=== PATIENT | male | born 1975 | race Caucasian/White ===

== ENCOUNTER 2017-01-23 02:33 | Emergency (ER) | payer MEDICAID ==
[~2017-01-23] VITALS: Ht 182.9 cm; Wt 104.3 kg
[2017-01-23 02:35] VITALS: BP 122/73
== END 2017-01-23 03:56 | disposition left against medical advice (07) ==
LOC: ER 02:33
DX: Z53.21 Procedure and treatment not carried out due to patient leaving prior to being seen by health care provider (principal)
CPT/HCPCS: A4606; Z7610

== ENCOUNTER 2017-09-01 18:17 | Emergency (ER) | payer MEDICAID, OTHER ==
[~2017-09-01] VITALS: Ht 185.4 cm; Wt 122.5 kg
[2017-09-01 18:17] VITALS: BP 138/90
== END 2017-09-01 19:57 | disposition home or self-care (01) ==
LOC: ER 18:19
DX: S09.8XXA Other specified injuries of head, initial encounter (principal); F17.200 Nicotine dependence, unspecified, uncomplicated; F41.9 Anxiety disorder, unspecified; W01.198A Fall on same level from slipping, tripping and stumbling with subsequent striking against other object, initial encounter; Y93.89 Activity, other specified; Y92.89 Other specified places as the place of occurrence of the external cause; Y99.0 Civilian activity done for income or pay
CPT/HCPCS: 70450; 99284; 99406; A4606; Z7610

== ENCOUNTER 2017-12-19 01:57 | Emergency (ER) | payer OTHER ==
[~2017-12-19] VITALS: Ht 182.9 cm; Wt 122.5 kg
[2017-12-19 02:38] VITALS: BP 158/103
[2017-12-19] MEDS ORDERED: LORAZEPAM INJ 2 MG/ML VIAL ONE (02:51)
[2017-12-19] MEDS ORDERED: LORAZEPAM INJ 2 MG/ML VIAL IM ONE (03:00)
== END 2017-12-19 03:29 | disposition home or self-care (01) ==
LOC: ER 02:02
DX: F41.9 Anxiety disorder, unspecified (principal); K21.9 Gastro-esophageal reflux disease without esophagitis; F17.200 Nicotine dependence, unspecified, uncomplicated
CPT/HCPCS: 96372; 99284; A4606; J2060; Z7610

== ENCOUNTER 2018-01-12 22:39 | Inpatient (IN) | payer MEDICAID, OTHER ==
[~2018-01-12] VITALS: Ht 185.4 cm; Wt 122.5 kg
--- NOTE | 2018-01-12 22:41 | NUR ---
PT AMBULATORY TO ER BED 1. BBSELF C/C LEFT LOWER EXTREMITY REDNESS/SWELLING X2 DAYS. DENIES TRAUMA. 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 VSS/RESP EVEN UNLABORED/NAD NOTED/SKIN WARM AND DRY/AFEBRILE/DENIES N-V-D/AOX4. AWAITNG MD HORN.
--- NOTE | 2018-01-12 23:26 | NUR ---
M/S 322-2
--- NOTE | 2018-01-12 23:29 | NUR ---
18G IV TO R AC X 1 ATTEMPT USING ASEPTIC TECH, BLOOD HANDED OVER TO THE LAB AT BEDSIDE. IV FLUSHES EASILY WITH NS, NO S/S INFILTRATION NOTED AT THIS TIME.
[2018-01-12] MEDS ORDERED: VANCOMYCIN 1 GM in IV D5W 250 ML IV ONE (23:30)
[2018-01-12] MEDS ORDERED: MORPHINE SULFATE INJ 2 MG/ML DISP.SYRIN IV ONE (23:30)
[2018-01-12] MEDS ORDERED: ONDANSETRON HCL/PF 4 MG/2 ML VIAL IV ONE (23:30)
[2018-01-12] MEDS ORDERED: IV NS 0.9% 500 ML BAG IV ONE (23:30)
[2018-01-12] MEDS ORDERED: ONDANSETRON HCL/PF 4 MG/2 ML VIAL ONE (23:32)
[2018-01-12] MEDS ORDERED: VANCOMYCIN 1 GM VIAL ONE (23:32)
[2018-01-12 23:33] LABS: BASOPHILS # (AUTO) 0.1 /CMM (0.0-0.2); BASOPHILS % (AUTO) 0.6 % (0.0-2.0); EOSINOPHILS % (AUTO) 0.6 % (0.0-6.0); HEMATOCRIT 40 % (39-51); HEMOGLOBIN 13.1 g/dL (13.5-17.5); LYMPHOCYTES # (AUTO) 1.2 /CMM (0.8-4.8); LYMPHOCYTES % (AUTO) 12.4 % (20.0-44.0); MEAN CORPUSCULAR HEMOGLOBIN 30 PG (26.0-33.0); MEAN CORPUSCULAR HGB CONC 33 g/dl (31.0-36.0); MEAN CORPUSCULAR VOLUME 91 fL (80-96); MONOCYTES # (AUTO) 1.5 /CMM (0.1-1.30); MONOCYTES % (AUTO) 15.1 % (2.0-12.0); NEUTROPHILS # (AUTO) 7.1 /CMM (1.8-8.9); NEUTROPHILS % (AUTO) 71.3 % (43.0-81.0); PLATELET COUNT (AUTO) 274 /CMM (150-450); RED BLOOD CELL COUNT(AUTO) 4.36 MIL/uL (4.5-6.0)
[2018-01-12] MEDS ORDERED: MORPHINE SULFATE INJ 4 MG/ML DISP.SYRIN ONE (23:33)
[2018-01-12 23:45] LABS: CALCIUM, SERUM 9.4 mg/dL (8.5-10.1); CREATININE 1.3 mg/dL (0.6-1.3); POTASSIUM 3.7 mmol/L (3.5-5.1)
[2018-01-12 23:49] LABS: INR 0.94 (0.87-1.13)
--- NOTE | 2018-01-13 00:11 | NUR ---
REPORT GIVEN TO LY ANTON FOR LUC.
--- NOTE | 2018-01-13 00:51 | NUR ---
fax [phone] fidel lyman Addendum: 01/13/18 at 0055 by YUMIKO faxed face sheet and clinicals to [facility]
--- NOTE | 2018-01-13 00:52 | NUR ---
PT BEING POSSIBLE TRANSFER TO [facility].
--- NOTE | 2018-01-13 01:53 | NUR ---
Called fidel casework supervisor at [phone]. per casework supervisor she is still awaiting call back from her MD, and will contue to monitor
--- NOTE | 2018-01-13 02:08 | NUR ---
[facility] [phone]
--- NOTE | 2018-01-13 02:09 | NUR ---
PT WILL NOW BE ADMITTED HERE, PT TBA TO M/S 322. LY ANTON GIVEN REPORT EARILER.
[2018-01-13 02:15] VITALS: BP_SYST 113; BP_SYST 131; BP_DIAS 75
--- NOTE | 2018-01-13 02:15 | NUR ---
PT TRANSPORTED TO /S [facility] VIA STRETCHER WITH EMT. VSS.
--- NOTE | 2018-01-13 02:16 | NUR ---
ADMISSION NOTES: RECEIVED REPORT FROM ROBERTO MCKEON RN, PT BROUGHT TO THE UNIT VIA WHEELCHAIR, AT BED SIDE. PT IS A/O X3 ON RA RESPIRATION EVEN AND UNLABORED, LEFT LOWER EXTREMITY SWELLING, WITH REDNESS AND BRUISES NOTED EXTENDING TO CALF AREA, PT ABLE TO WIGGLE AND MOVE TOES AND FOOT, POSITIVE WITH SENSATION ABLE TO DISTINGUISH BETWEEN SHARP AND BLUNT, WITH GOOD CAPILLARY REFILL NOTED, DENIES ANY TINGLING OR NUMBNESS SENSATION BUT CLAIMED ITS PAINFUL/BURNING WHEN TOUCH. PEDAL PULSE PALPABLE. OFFLOADED ON PILLOWS. PT BEING ADMITTED FOR CELLULITIS LLE. ORIENTED PT TO UNIT POLICY AND HOURLY ROUNDING, USE OF CALL LIGHT SYSTEM. VS TAKEN AND RECORDED. ANSWER QUERIES OF PT AND PT'S . DISCUSSED PLAN OF CARE TO PT, AND POSSIBLE US OF LLE TO R/O DVT. INVENTORY OF BELONGINGS COMPLETED BY KALIN SOMMERS. SKIN ASSESSMENT PERFORMED NO OTHER SKIN ISSUES NOTED ASIDE FROM SWELLING ON LEFT LEG. SAFETY PRECAUTIONS FOR FALL INITIATED, CALL LIGHT IN REACH, WILL CONTINUE MONITORING PT.
[2018-01-13] MEDS ORDERED: ZOLPIDEM TARTRATE 5 MG TABLET PO PRN (02:30)
[2018-01-13] MEDS ORDERED: ACETAMINOPHEN 325 MG TABLET PO PRN (02:30)
[2018-01-13] MEDS ORDERED: ONDANSETRON HCL/PF 4 MG/2 ML VIAL IVP PRN (02:30)
[2018-01-13] MEDS ORDERED: Z GUARD REMEDY 2 OZ OINT TP PRN (02:30)
[2018-01-13] MEDS: HYDROCODONE/APAP 10/325MG 1 EA TABLET PO PRN ×2 (02:46→21:43)
--- NOTE | 2018-01-13 02:47 | NUR ---
PRN NORCO: PT C/O LEFT LEG PAIN REQUESTING FOR PAIN MEDICATION, PRN NORCO 10/325 MG TAB P[O ADMINISTERED AT THIS TIME, WILL CONTINUE TO MONITOR AND REASSESS
--- NOTE | 2018-01-13 03:00 | NUR ---
RN NOTES: CONTACTED ER, TALKED TO ROBERTO RN, ASKED ABOUT MRSA, PER ROBERTO IT WAS DONE BY THE TECH AND THEY WILL PLACE THE ORDER
--- NOTE | 2018-01-13 06:51 | NUR ---
RN CLOSING NOTES: PT IN BED, AWAKE, ON RA, RESPIRATION EVEN AND UNLABORED, IV ACCESS REMAINS PATENT AND FLUSHING WELL, FREE FROM ANY S/S OF REDNESS OR INFILTRATION. LLE OFFLOADED. VS REMAINS STABLE, NEEDS ATTENDED. SAFETY PRECAUTIONS FOR FALL REMAINS ENGAGED, CALL LIGHT IN REACH, WILL ENDORSE TO DAY RN FOR CONTINUITY OF CARE.
[2018-01-13 07:10] LABS: BASOPHILS % (AUTO) 0.5 % (0.0-2.0); EOSINOPHILS % (AUTO) 1.7 % (0.0-6.0); HEMATOCRIT 39 % (39-51); HEMOGLOBIN 12.9 g/dL (13.5-17.5); LYMPHOCYTES # (AUTO) 1.6 /CMM (0.8-4.8); LYMPHOCYTES % (AUTO) 22.4 % (20.0-44.0); MEAN CORPUSCULAR HEMOGLOBIN 31 PG (26.0-33.0); MEAN CORPUSCULAR HGB CONC 33 g/dl (31.0-36.0); MEAN CORPUSCULAR VOLUME 93 fL (80-96); MONOCYTES # (AUTO) 1.4 /CMM (0.1-1.30); MONOCYTES % (AUTO) 18.7 % (2.0-12.0); NEUTROPHILS # (AUTO) 4.1 /CMM (1.8-8.9); NEUTROPHILS % (AUTO) 56.7 % (43.0-81.0); PLATELET COUNT (AUTO) 246 /CMM (150-450); RDW COEFFICIENT OF VARIATION 15.1 (11.5-15.0); RED BLOOD CELL COUNT(AUTO) 4.24 MIL/uL (4.5-6.0); WHITE BLOOD COUNT (AUTO) 7.3 K/uL (4.3-11.0)
--- NOTE | 2018-01-13 07:25 | NUR ---
MS RN NOTES PATIENT RECEIVED RESTING INSIDE ROOM. AWAKE, ALERT AND ORIENTED X 4, VERBALLY RESPONSIVE AND RESPONDS TO VERBAL AND TACTILE STIMULI. BREATHING EVEN AND UNLABORED. NO SOB OR ACUTE DISTRESS NOTED AT THIS TIME. PATIENT CALM AND RELAXED. NO CHANGES IN LOC NOTED. IV INTACT AND PATENT. CONTINUE TO OFFLOAD LLE WITH PILLOWS WHILE ON BED. WILL CONTINUE TO MONITOR. BED LOCKED AND IN LOW POSITION. BILATERAL UPPER SIDE RAILS UP AND LOCKED. CALL LIGHT WITHIN EASY REACH.
[2018-01-13 07:32] LABS: ALBUMIN 3.4 g/dL (3.4-5.0); BILIRUBIN,TOTAL 0.4 mg/dL (0.2-1.0); CALCIUM, SERUM 8.7 mg/dL (8.5-10.1); CREATININE 1.1 mg/dL (0.6-1.3); MAGNESIUM 2.2 mg/dL (1.8-2.4); PHOSPHORUS 4.8 mg/dL (2.5-4.9); POTASSIUM 3.9 mmol/L (3.5-5.1); TOTAL PROTEIN, SERUM 7.3 g/dL (6.4-8.2)
[2018-01-13 08:00] VITALS: BP 98/53
[2018-01-13] MEDS ORDERED: FEE PK DOSING 1 MIN EA MC ONE (08:07)
[2018-01-13] MEDS: VANCOMYCIN 1.25 GM in IV D5W 500 ML IV SCH ×2 (09:44→16:27)
[2018-01-13] MEDS: ENOXAPARIN SODIUM 40 MG/0.4 ML DISP.SYRIN SQ SCH (09:46)
[2018-01-13 16:00] VITALS: BP 105/71
--- NOTE | 2018-01-13 18:48 | NUR ---
MS RN NOTES PATIENT RESTING INSIDE ROOM. AWAKE, ALERT AND ORIENTED X 4, VERBALLY RESPONSIVE AND RESPONDS TO VERBAL AND TACTILE STIMULI. BREATHING EVEN AND UNLABORED. NO SOB OR ACUTE DISTRESS NOTED. PATIENT AFEBRILE, SKIN DRY AND WARM TO TOUCH. DENIES ANY PAIN AT THIS TIME. IV REMAINS INTACT, NO SWELLING OR BLEEDING ON SITE. MAINTAINED OFFLOADING OF LLE WITH PILLOWS WHILE ON BED. WILL ENDORSE TO INCOMING SHIFT FOR LUC. BED LOCKED AND IN LOW POSITION. BILATERAL UPPER SIDE RAILS UP AND LOCKED. CALL LIGHT WITHIN EASY REACH
--- NOTE | 2018-01-13 19:18 | NUR ---
MS RN INITIAL NOTES Report received at bedside. Patient received in bed, resting comfortably, easily aroused. Alert and oriented x4, verbally responsive. No complaints of pain. IV on right ac noted. On antibiotic therapy for cellulitis on left lower extremity. Safety measures in place. No SOB/labored breathing noted. Not in any type of distress. Will continue to monitor and assess patient.
[2018-01-13 20:00] VITALS: BP 111/67
[2018-01-14] MEDS: VANCOMYCIN 1.25 GM in IV D5W 500 ML IV SCH ×2 (00:48→08:22)
--- NOTE | 2018-01-14 07:10 | NUR ---
RN NOTES PT IS LAYING DOWN IN BED, AWAKE AND ALERT, RESTING COMFORTABLY. PT ON RA, RESPIRATIONS ARE EVEN AND UNLABORED. IV ON RAC INTACT AND SL. NO SIGNS OF DISTRESS NOTED. SAFETY MEASURES ARE IN PLACE, CALL LIGHT IS IN REACH. WILL CONTINUE TO MONITOR.
[2018-01-14 07:29] LABS: BASOPHILS % (AUTO) 0.6 % (0.0-2.0); EOSINOPHILS % (AUTO) 2.6 % (0.0-6.0); HEMATOCRIT 42 % (39-51); LYMPHOCYTES # (AUTO) 1.2 /CMM (0.8-4.8); LYMPHOCYTES % (AUTO) 22.2 % (20.0-44.0); MEAN CORPUSCULAR HEMOGLOBIN 31 PG (26.0-33.0); MEAN CORPUSCULAR HGB CONC 33 g/dl (31.0-36.0); MEAN CORPUSCULAR VOLUME 92 fL (80-96); MONOCYTES # (AUTO) 0.9 /CMM (0.1-1.30); MONOCYTES % (AUTO) 15.5 % (2.0-12.0); NEUTROPHILS # (AUTO) 3.3 /CMM (1.8-8.9); NEUTROPHILS % (AUTO) 59.1 % (43.0-81.0); PLATELET COUNT (AUTO) 259 /CMM (150-450); RDW COEFFICIENT OF VARIATION 15.2 (11.5-15.0); RED BLOOD CELL COUNT(AUTO) 4.59 MIL/uL (4.5-6.0); WHITE BLOOD COUNT (AUTO) 5.5 K/uL (4.3-11.0)
[2018-01-14] MEDS: HYDROCODONE/APAP 10/325MG 1 EA TABLET PO PRN ×2 (07:35→12:42)
[2018-01-14 07:38] LABS: CALCIUM, SERUM 8.5 mg/dL (8.5-10.1); CREATININE 0.9 mg/dL (0.6-1.3); MAGNESIUM 2.1 mg/dL (1.8-2.4); PHOSPHORUS 3.5 mg/dL (2.5-4.9); POTASSIUM 4.2 mmol/L (3.5-5.1)
[2018-01-14 08:00] VITALS: BP 114/76
[2018-01-14] MEDS: ENOXAPARIN SODIUM 40 MG/0.4 ML DISP.SYRIN SQ SCH (08:23)
[2018-01-14 10:25] LABS: EOSINOPHILS % (MANUAL) 3 % (0-4); LYMPHOCYTES % (MANUAL) 27 % (16-48); MONOCYTES % (MANUAL) 8 % (0-11.0); NEUTROPHILS % (MANUAL) 62 (42-76)
--- NOTE | 2018-01-14 14:41 | NUR ---
RN NOTES PT LEFT AGAINST MEDICAL ADVICE. PT WAS EDUCATED ON THE IMPORTANCE OF STAYING IN THE HOSPITAL FOR FURTHER TREATMENT AND THAT HIS HOSPITALIST WOULD BE IN SHORTLY DO DISCUSS HIS PLAN OF CARE. PT STATED THAT HE DOES NOT WANT TO WAIT ANY LONGER AND WANTS TO GO HOME NOW. IV AND ID BAND WERE REMOVED AND AMA FORM WAS SIGNED BY PT. PER PT, HE HAS ALL OF HIS BELONGINGS WITH HIM TO GO HOME WITH AND HIS FAMILY MEMBER WILL TAKE HIM HOME BY PRIVATE CAR. PT REFUSED TO TAKE ANY EDUCATION MATERIALS OR HOSPITAL WORK UP FROM ADMISSION. POPCORN CANDY MAKER AND YARD LOADER OPERATOR WERE NOTIFIED.
[2018-01-14] MEDS ORDERED: VANCOMYCIN 1 GM in IV D5W 250 ML IV SCH (17:00)
== END 2018-01-14 14:40 | disposition left against medical advice (07) | DRG 383 ==
LOC: ER 22:47 → MED 01-13 00:07
PROVIDERS: ADMIT Nurse Practitioner Acute Care; ATTEND Family Medicine
DX: L03.116 Cellulitis of left lower limb (principal); N17.0 Acute kidney failure with tubular necrosis; F41.9 Anxiety disorder, unspecified; E66.9 Obesity, unspecified; D64.9 Anemia, unspecified; E87.1 Hypo-osmolality and hyponatremia; Z68.35 Body mass index [BMI] 35.0-35.9, adult; K21.9 Gastro-esophageal reflux disease without esophagitis; F17.200 Nicotine dependence, unspecified, uncomplicated; F12.929 Cannabis use, unspecified with intoxication, unspecified; F11.21 Opioid dependence, in remission; F12.90 Cannabis use, unspecified, uncomplicated
CPT/HCPCS: 36415; 80048-TC; 80053-TC; 80202-TC; 83605-TC; 83735-TC; 84100-TC; 85025-TC; 85730-TC; 87040-TC; 87081-TC; A4606; J1650; J2270; J2405; J3370; J7040; J7050; J7060; Z7610

== ENCOUNTER 2018-03-11 03:48 | Emergency (ER) | payer OTHER ==
[~2018-03-11] VITALS: Ht 182.9 cm; Wt 99.8 kg
[2018-03-11 03:58] VITALS: BP 157/104
[2018-03-11] MEDS ORDERED: IBUPROFEN 400 MG TABLET PO ONE (04:00)
[2018-03-11] MEDS ORDERED: IBUPROFEN 400 MG TABLET ONE (04:03)
== END 2018-03-11 05:39 | disposition home or self-care (01) ==
LOC: ER 03:51
DX: S83.8X1A Sprain of other specified parts of right knee, initial encounter (principal); K21.9 Gastro-esophageal reflux disease without esophagitis; F41.9 Anxiety disorder, unspecified; F17.200 Nicotine dependence, unspecified, uncomplicated; W01.0XXA Fall on same level from slipping, tripping and stumbling without subsequent striking against object, initial encounter; Y93.89 Activity, other specified; Y92.89 Other specified places as the place of occurrence of the external cause; Y99.8 Other external cause status
CPT/HCPCS: 73564-TC; A4606; Z7610

== ENCOUNTER 2019-05-23 03:47 | Emergency (ER) | payer MEDICAID, OTHER ==
[~2019-05-23] VITALS: Ht 182.9 cm; Wt 122.5 kg
--- NOTE | 2019-05-23 04:06 | NUR ---
PT BIBS. PRODUCTIVE COUGH W/ CHEST CONGESTION X 2 DAYS. A FEBRILE. PT AAOX4, VSS, BREATHING EVEND AND UNLABORED ON ROOM AIR W/ NAD NOTED. PT CONNECTED TO THE MONITOR AND POX
[2019-05-23] MEDS ORDERED: ACETAMINOPHEN W/ CODEINE#3 1 EA TABLET ONE (04:12)
--- NOTE | 2019-05-23 04:15 | NUR ---
XRAY AT BEDSIDE
[2019-05-23] MEDS ORDERED: ACETAMINOPHEN W/ CODEINE#3 1 EA TABLET PO ONE (04:30)
[2019-05-23 05:49] VITALS: BP 128/81
--- NOTE | 2019-05-23 06:13 | NUR ---
Patient discharged to home in stable condition. Written and verbal after care instructions given. Patient verbalizes understanding of instruction.
== END 2019-05-23 06:14 | disposition home or self-care (01) ==
LOC: ER 03:50
DX: J06.9 Acute upper respiratory infection, unspecified (principal); K21.9 Gastro-esophageal reflux disease without esophagitis; F41.9 Anxiety disorder, unspecified; F17.200 Nicotine dependence, unspecified, uncomplicated; Z98.890 Other specified postprocedural states
CPT/HCPCS: 71045-TC

== ENCOUNTER 2019-06-06 00:20 | Emergency (ER) | payer MEDICAID ==
[~2019-06-06] VITALS: Ht 182.9 cm; Wt 122.5 kg
[2019-06-06 00:33] VITALS: BP 149/88
== END 2019-06-06 01:09 | disposition home or self-care (01) ==
LOC: ER 00:25
DX: R58 Hemorrhage, not elsewhere classified (principal); Z48.00 Encounter for change or removal of nonsurgical wound dressing; K21.9 Gastro-esophageal reflux disease without esophagitis; F41.9 Anxiety disorder, unspecified; F17.200 Nicotine dependence, unspecified, uncomplicated; Z98.890 Other specified postprocedural states

== ENCOUNTER 2020-03-11 18:33 | Emergency (ER) | payer MEDICAID ==
[~2020-03-11] VITALS: Ht 182.9 cm; Wt 127.0 kg
[2020-03-11] MEDS: IV NS 0.9% 1,000 ML BAG IV ONE (19:15)
[2020-03-11] MEDS: ACETAMINOPHEN 325 MG TABLET PO ONE (19:16)
[2020-03-11] MEDS ORDERED: ACETAMINOPHEN ES 500 MG TABLET ONE (19:16)
--- NOTE | 2020-03-11 19:30 | NUR ---
BIBS FROM HOME TO ER BED 6. AAOX4. NOT IN RESP DISTRESS, BREATHING EVEN AND UNLABORED. AMBULATORY. CAME IN FOR HEADACHE, SORETHROAT AND FEVER FOR THE PAST 2 DAYS. 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 NOTED THROAT REDNESS. MICHAEL FIGUEROA WAS AT THE BEDSIDE FOR EVAL. ORDERS RECEIVED NOTED AND CARRIED OUT.
--- NOTE | 2020-03-11 20:20 | NUR ---
Patient discharged to home in stable condition. Written and verbal after care instructions given. Patient verbalizes understanding of instruction.IV removed. Catheter intact and site benign. Pressure and 4x4 applied to site. No bleeding noted. Pt ambulatory with a steady gait
[2020-03-11 20:22] VITALS: BP 141/85
== END 2020-03-11 20:22 | disposition home or self-care (01) ==
LOC: ER 18:42
DX: B34.9 Viral infection, unspecified (principal); R50.9 Fever, unspecified; Z20.828 Contact with and (suspected) exposure to other viral communicable diseases; R59.0 Localized enlarged lymph nodes; F17.200 Nicotine dependence, unspecified, uncomplicated
CPT/HCPCS: 71045; 87070; 87880; 96360; 99284; C9803; J7030; U0003; 86403-TC

== ENCOUNTER 2020-03-30 07:08 | Emergency (ER) | payer MEDICAID ==
[~2020-03-30] VITALS: Ht 182.9 cm; Wt 99.8 kg
--- NOTE | 2020-03-30 07:15 | NUR ---
PT BIB SELF C/O ABD AREA REDNESS WITH SCABBING PT STATED THAT HE BURNED IT SOMEWHERE. ALSO REPORTS L KNEE REDNESS/ TENDERNESS WITH A SCAB PT STATES THAT HE KNEELED ON A NAIL. VS CHECKED. AWAITING MD HORN.
[2020-03-30] MEDS ORDERED: TDAP [DIPH/PERTUSSIS/TET] 0.5 ML VIAL IM ONE (07:30)
[2020-03-30] MEDS ORDERED: SULFAMETH/TRIMETH 800/160 MG 1 UDTAB TABLET PO ONE (07:30)
[2020-03-30] MEDS ORDERED: CEPHALEXIN MONOHYDRATE 500 MG CAPSULE PO ONE (07:30)
[2020-03-30 08:01] VITALS: BP 125/82
== END 2020-03-30 08:01 | disposition home or self-care (01) ==
LOC: ER 07:13
DX: L03.116 Cellulitis of left lower limb (principal); L03.311 Cellulitis of abdominal wall; K21.9 Gastro-esophageal reflux disease without esophagitis; F41.9 Anxiety disorder, unspecified; Z98.890 Other specified postprocedural states
CPT/HCPCS: 90715

== ENCOUNTER 2020-06-14 04:27 | Emergency (ER) | payer MEDICAID ==
[~2020-06-14] VITALS: Ht 182.9 cm; Wt 122.5 kg
[2020-06-14 04:30] VITALS: BP 132/74
[2020-06-14] MEDS ORDERED: TDAP [DIPH/PERTUSSIS/TET] 0.5 ML VIAL IM ONE ×2 (05:15→05:30)
== END 2020-06-14 05:21 | disposition home or self-care (01) ==
LOC: ER 04:33
DX: L03.116 Cellulitis of left lower limb (principal); F17.200 Nicotine dependence, unspecified, uncomplicated
CPT/HCPCS: 90715

== ENCOUNTER 2020-10-12 21:48 | Emergency (ER) | payer MEDICAID ==
[~2020-10-12] VITALS: Ht 182.9 cm; Wt 122.5 kg
--- NOTE | 2020-10-12 22:11 | NUR ---
pt bibself c/o palpitation, flashes in eyes, and ringing in ears after taking 2 pills of gensing and 1 pill of super horney goat weed. Pt aaox4 breathing evenly and unlabored. Pt skin is cool and clammy, but intact. Rt ac 20g initated. Pt attached to monitor and pox. Pt given blanket and call light within reach. will continue to monitor.
[2020-10-12] MEDS ORDERED: ONDANSETRON HCL/PF 4 MG/2 ML VIAL ONE (22:28)
[2020-10-12] MEDS ORDERED: IV NS 0.9% 1,000 ML BAG IV ONE (22:30)
[2020-10-12] MEDS ORDERED: ONDANSETRON HCL/PF 4 MG/2 ML VIAL IVP ONE (22:30)
--- NOTE | 2020-10-12 22:42 | NUR ---
blood obtained and sent to lab
--- NOTE | 2020-10-12 22:48 | NUR ---
xray at bedside
[2020-10-12 22:50] LABS: BASOPHILS # (AUTO) 0.1 /CMM (0.0-0.2); EOSINOPHILS % (AUTO) 1.5 % (0.0-6.0); HEMATOCRIT 48 % (39-51); HEMOGLOBIN 16.1 g/dL (13.5-17.5); LYMPHOCYTES # (AUTO) 1.8 /CMM (0.8-4.8); LYMPHOCYTES % (AUTO) 23.5 % (20.0-44.0); MEAN CORPUSCULAR HGB CONC 33 g/dl (31.0-36.0); MEAN CORPUSCULAR VOLUME 91 fL (80-96); MONOCYTES # (AUTO) 0.8 /CMM (0.1-1.30); MONOCYTES % (AUTO) 10.2 % (2.0-12.0); NEUTROPHILS # (AUTO) 4.8 /CMM (1.8-8.9); NEUTROPHILS % (AUTO) 63.8 % (43.0-81.0); PLATELET COUNT (AUTO) 288 /CMM (150-450); RED BLOOD CELL COUNT(AUTO) 5.34 MIL/uL (4.5-6.0); WHITE BLOOD COUNT (AUTO) 7.5 K/uL (4.3-11.0)
[2020-10-12 23:01] LABS: CARBON DIOXIDE 29 mmol/L (21-32); CHLORIDE 105 mmol/L (98-107); CREATININE 1.2 mg/dL (0.6-1.3); GLUCOSE 99 mg/dL (74-106); POTASSIUM 4.3 mmol/L (3.5-5.1); SODIUM SERUM 143 mmol/L (136-145); UREA NITROGEN, BLOOD 17 mg/dL (7-18)
[2020-10-12 23:13] LABS: ALANINE AMINOTRANSFERASE 34 U/L (12-78); ALBUMIN 4.5 g/dL (3.4-5.0); ALKALINE PHOSPHATASE 56 U/L (46-116); ASPARTATE AMINOTRANSFERASE 14 U/L (15-37); BILIRUBIN,DIRECT 0.1 mg/dL (0.0-0.2); BILIRUBIN,TOTAL 0.3 mg/dL (0.2-1.0); NT-PRO BNP 13 pg/mL (0-125); TOTAL PROTEIN, SERUM 8.6 g/dL (6.4-8.2)
--- NOTE | 2020-10-13 00:02 | NUR ---
Patient discharged to home in stable condition. Written and verbal after care instructions given. Patient verbalizes understanding of instruction. IV removed. Catheter intact and site benign. Pressure and 4x4 applied to site. No bleeding noted. Pt ambulatory with a steady gait
[2020-10-13 00:05] VITALS: BP 140/76
== END 2020-10-13 00:02 | disposition home or self-care (01) ==
LOC: ER 21:50
DX: R11.0 Nausea (principal); T50.995A Adverse effect of other drugs, medicaments and biological substances, initial encounter; R07.89 Other chest pain; R94.31 Abnormal electrocardiogram [ECG] [EKG]; F17.200 Nicotine dependence, unspecified, uncomplicated; Z98.890 Other specified postprocedural states; Y92.89 Other specified places as the place of occurrence of the external cause
CPT/HCPCS: 36415; 71045; 80048; 80076; 82962; 83880; 84484; 85025; 85730; 93005 ×2; 96361; 96374; 99285; J2405; J7030

== ENCOUNTER 2024-04-13 13:30 | Emergency (ER) | payer MEDICAID ==
[~2024-04-13] VITALS: Ht 182.9 cm; Wt 127.0 kg
[2024-04-13] MEDS ORDERED: METOCLOPRAMIDE HCL 10 MG/2 ML VIAL ONE (14:31)
[2024-04-13] MEDS ORDERED: MECLIZINE HCL 12.5 MG TABLET ONE (14:32)
[2024-04-13 14:34] LABS: BASOPHILS # (AUTO) 0.1 K/uL (0.0-0.2); BASOPHILS % (AUTO) 0.5 % (0.0-2.0); EOSINOPHILS % (AUTO) 0.3 % (0.0-6.0); HEMATOCRIT 41 % (39-51); HEMOGLOBIN 13.7 g/dL (13.5-17.5); LYMPHOCYTES # (AUTO) 0.8 K/uL (0.8-4.8); MEAN CORPUSCULAR HEMOGLOBIN 29 PG (26.0-33.0); MEAN CORPUSCULAR HGB CONC 33 g/dl (31.0-36.0); MEAN CORPUSCULAR VOLUME 88 fL (80-96); MONOCYTES # (AUTO) 0.9 K/uL (0.1-1.30); MONOCYTES % (AUTO) 7.7 % (2.0-12.0); NEUTROPHILS # (AUTO) 9.7 K/uL (1.8-8.9); NEUTROPHILS % (AUTO) 84.5 % (43.0-81.0); PLATELET COUNT (AUTO) 278 K/uL (150-450); RED BLOOD CELL COUNT(AUTO) 4.69 MIL/uL (4.5-6.0); RED CELL DISTRIBUTION WIDTH 18.3 % (11.5-15.0); WHITE BLOOD COUNT (AUTO) 11.5 K/uL (4.3-11.0)
[2024-04-13] MEDS: METOCLOPRAMIDE HCL 10 MG/2 ML VIAL IV ONE (14:39)
[2024-04-13] MEDS: MECLIZINE HCL 12.5 MG TABLET PO ONE (14:40)
[2024-04-13 15:24] LABS: CALCIUM, SERUM 9.1 mg/dL (8.5-10.1); CARBON DIOXIDE 27 mmol/L (21-32); CHLORIDE 105 mmol/L (98-107); CREATININE 1.1 mg/dL (0.6-1.3); GLUCOSE 119 mg/dL (74-106); POTASSIUM 4.3 mmol/L (3.5-5.1); SODIUM SERUM 140 mmol/L (136-145); UREA NITROGEN, BLOOD 11 mg/dL (7-18)
[2024-04-13 15:30] LABS: ALANINE AMINOTRANSFERASE 22 U/L (12-78); ALKALINE PHOSPHATASE 59 U/L (46-116); ASPARTATE AMINOTRANSFERASE 10 U/L (15-37); BILIRUBIN,DIRECT 0.1 mg/dL (0.0-0.2); BILIRUBIN,TOTAL 0.2 mg/dL (0.2-1.0); LIPASE 27 U/L (16-77); TOTAL PROTEIN, SERUM 7.7 g/dL (6.4-8.2)
[2024-04-13 17:06] LABS: APPEARANCE,URINE CLEAR (CLEAR); BILIRUBIN,URINE NEGATIVE (NEGATIVE); BLOOD, URINE 1+ Ery/uL (NEGATIVE); COLOR,URINE YELLOW (YELLOW); KETONES,URINE TRACE mg/dL (NEGATIVE); LEUKOCYTE ESTERASE ,URINE NEGATIVE (NEGATIVE); NITRITE, URINE NEGATIVE (NEGATIVE); PH,URINE 5.5 (5.0-8.0); PROTEIN,URINE 1+ mg/dl (NEGATIVE); UGLUCOSE NEGATIVE (NEGATIVE); UROBILINOGEN,URINE 0.2 EU/dL (0.2)
[2024-04-13 17:18] LABS: ADD URINE CULTURE NO; BACTERIA,URINE None seen /HPF (None Seen); CALCIUM OXALATE CRYSTALS,UR Few /HPF (None Seen); MUCUS,URINE Few /LPF (None Seen); WBC,URINE 0-2 /HPF (0-3)
[2024-04-13] MEDS ORDERED: MECL-159 PO (17:37)
[2024-04-13] MEDS ORDERED: METO-295 PO (17:37)
[2024-04-13 17:53] VITALS: BP 128/71; TEMP 98.7; O2SAT 99
== END 2024-04-13 17:54 | disposition home or self-care (01) ==
LOC: ER 13:36
DX: R42 Dizziness and giddiness (principal); B34.9 Viral infection, unspecified; F17.200 Nicotine dependence, unspecified, uncomplicated; R00.0 Tachycardia, unspecified; R07.9 Chest pain, unspecified; R09.89 Other specified symptoms and signs involving the circulatory and respiratory systems; R14.0 Abdominal distension (gaseous); R53.1 Weakness
CPT/HCPCS: 99285; 96374; 71045; 93005; 85025; 80048; 83690; 80076; 81001; 36415; 84484; 83880; 82962; J8597; J2765